=== PATIENT | male | born 1960 | race Caucasian/White ===

== ENCOUNTER 2016-12-11 19:17 | Emergency (ER) | payer OTHER ==
[~2016-12-11] VITALS: Ht 177.8 cm; Wt 111.4 kg
[2016-12-11 19:25] VITALS: BP 178/120; PULSE 92; RESP 16; O2SAT 97
--- NOTE | 2016-12-11 21:07 | ED.REPORT ---
HPI-Extremity Problem Upper Date of Service Dec 11, 2016 ED Provider: Jose Guadalupe Galleogs MD A 56 year old male with a history of hypertension presents to the ED complaining of a laceration. The pt hit his left third finger with the scraping blade of a saw when he was working in his home this evening. This resulted in a laceration near the nail. No other trauma is reported. Nursing Notes Stated Complaint: LEFT HAND LACERATION Chief Complaint: Laceration Nursing Notes Reviewed: Yes Allergies: Coded Allergies: No Known Allergies (Unverified , 12/11/16) Scheduled PRN Ibuprofen (Ibuprofen) 600 Mg Tablet 600 MG PO QID PRN PRN For Pain General Time Seen by MD: 21:07 Chief Complaint Finger injury left 3 Hx Obtained From: Patient Arrived By: Walk-in Onset Occurred: 1 - 4 hours ago Symptom Duration: Since onset Recent Healthcare: No recent doctor visit, No recent hospitalization Similar Sx Previous: No Past Medical History Past Medical History Reports: Hypertension Past Surgical History none reported Smoking History Unknown if Ever Smoker Social History Other Social History: Good social support, Ambulatory Status Independent Review of Systems Review of Systems Note: laceration Musculoskeletal: Reports: Extremity pain, Denies: Back pain, Neck pain Skin: Denies Rash Complete sys rev & neg: except as marked. Respiratory: Denies: Non-productive cough, Shortness of breath Cardiovascular: Denies: Chest pain GI: Denies: Abdominal pain, Nausea, Vomiting Physical Exam Initial Vital Signs Vital Signs (First) Date Time Temp Pulse Resp B/P Pulse Ox O2 Delivery O2 Flow Rate FiO2 12/11/16 19:25 36.8 92 16 178/120 97 Room Air Initial VS: Reviewed General/Constitutional: Awake, Alert Neck: Atraumatic, Supple, Full range of motion Respiratory / Chest: Atraumatic, Breath sounds NL, Breath sounds = bilat, No respiratory distress Cardiovascular: Heart rate NL, Regular rhythm, Heart sounds NL Upper Extremity / MS: Atraumatic, Full range of motion Wrist / Hand: Neurologic intact, Vascular intact 3 cm distal flap laceration of the epionychium of the left third finger flap slightly dusky currently hemostatic no tendon involvement Skin: Color NL, No rash, Warm, Dry Neurologic: Oriented X3, Speech NL, No motor deficits, No sensory deficits Head / Eyes: Atraumatic, Normocephalic, PERRL, EOMI ENT: Atraumatic, Airway patent, Mucous membranes moist Abdomen: Atraumatic, Soft, Non-tender Back: Atraumatic, Full range of motion Lower Extremity / Pelvis / MS: Atraumatic, Full range of motion Psychiatric: Affect NL, Mood NL Interpretation & Diagnostics Interpretation & Diagnostics: Left Finger X-Ray: IMPRESSION: No fracture. No radiopaque foreign body Dictated by: Chris Finley M.D. on 12/11/2016 at 21:37 Approved by: Chris Finley M.D. on 12/11/2016 at 21:43 Procedures Laceration Management Time: 21:50 Procedure Performed by: ED physician Consent / Setup / Site Prep: Informed consent provided, Consent from patient , Time-out performed, Hand hygiene observed, Stand sterile technique Location of Wound: left third finger Wound Length: 3 cm Local Anesthesia: Lidocaine 1% Digital Block: Yes Digit Involved: Middle finger left Wound Preparation: Hibiclens - Chlorhexidine, Normal saline Debridement: None Irrigation: Copious Foreign Body Explore / Removal: Explored for foreign body Repair Skin: ___ O (4), Nylon # Sutures - Skin: 7 Suture Technique: Mattress (horizontal) Post-Procedure / Complications: Antibiotic oint applied, Dressing applied, No complications, Condition improved, Tolerated procedure well, Patient stable Re-Eval/Medical Decision Med Decision/Clinical Course 56-year-old with history of hypertension presents after a laceration of his finger sustained with a reciprocating scraping device. He has a distal flap which required repair and has some vascular compromise apparent. It was tacked down with horizontal mattress sutures with an effort to minimize a compromise of the blood supply. Bacitracin dressing and discharged in stable improved condition. Suture removal ten days. Re-Evaluation/Progress : Time of Eval: 21:50 Patient Status: Condition improved Re-Evaluation/Progress Note: Pt rechecked and laceration management is performed. The diagnosis and plan for discharge are discussed. The pt understands and agrees with the plan. All questions are addressed at this time. Counseled Regarding: Diagnosis, Need for follow-up, When/why to return to ED Discharge & Departure Impression: Primary Impression: Laceration Disposition: Home Discharge Condition All VS Reviewed: Yes Condition: Stable Patient Instructions: Finger Laceration (ED) Additional Instructions: Bacitracin dressing to the suture line 3 times daily until sutures are removed. Follow-up with your doctor in the office if needed. Return here promptly for any infection signs or other new issues of concern. Return here day ten for suture removal. Tetanus updated today Ibuprofen as needed for pain. Elevate the finger whenever possible to reduce swelling and take the pressure off the flap to improve circulation. Referrals: Eliezer Hutton MD (PCP) Scribe Attestation Portions of this note were transcribed by Joana Pedraza. I, Dr. Gallegos personally performed the history, physical exam and medical decision-making; I reviewed and confirmed the accuracy of the information in the transcribed note. copies to: Eliezer Hutton MD, Christopher W MD Dec 11, 2016 21:07 JOANA PEDRAZA Dec 11, 2016 21:16
--- NOTE | 2016-12-11 21:45 | DRSVH ---
PROCEDURE: X-RAY FINGERS, TWO VIEWS LEFT INDICATIONS: cut with chisel TECHNIQUE: AP hand, 2 views of the left finger(s) acquired. COMPARISON: None. FINDINGS: Bones: No fractures or dislocations. No suspicious bony lesions. Soft tissues: No suspicious soft tissue calcifications. IMPRESSION: No fracture. No radiopaque foreign body Dictated by: Chris Finley M.D. on 12/11/2016 at 21:37 Approved by: Chris Finley M.D. on 12/11/2016 at 21:43
[2016-12-11] MEDS ORDERED: IBUP-1827 PO (22:16)
[2016-12-11] MEDS ORDERED: TdaP Vaccine 0.5 mL Inj IM ONE (22:20)
== END 2016-12-11 22:49 | disposition home or self-care (01) ==
LOC: SED 19:17
DX: S61.213A Laceration without foreign body of left middle finger without damage to nail, initial encounter (principal); W27.0XXA Contact with workbench tool, initial encounter; Y93.89 Activity, other specified; Y92.009 Unspecified place in unspecified non-institutional (private) residence as the place of occurrence of the external cause; Y99.8 Other external cause status; I10 Essential (primary) hypertension; Z23 Encounter for immunization